=== PATIENT | female | born 1995 | race Two or more races ===

== ENCOUNTER 2016-05-14 09:11 | Emergency (ER) | payer MEDICAID ==
--- NOTE | 2016-05-14 09:15 | EDM.PDOC ---
ED HPI GENERAL MEDICAL PROBLEM - General Chief Complaint: General Stated Complaint: difficulty breathing, back pain Time Seen by Provider: 05/14/16 09:11 Source of Information: Reports: Patient History Limitations: Reports: No limitations - History of Present Illness INITIAL COMMENTS - FREE TEXT/NARRATIVE: pt in with c/o "I cant breathe", has chest and nasal congestion, denies fever or chills, no neck/back pain or stiffness, no abd pain, no calf pain/tenderness or redness, no abd pain, no nvdc, no problems with site, no uti sx, pt very belligerent and cursing in room. Onset Date: 05/13/16 Severity: mild Improves with: Reports: None Worsens with: Reports: None Associated Symptoms: Reports: cough, cough w sputum. Denies: fever/chills, headaches, loss of appetite, malaise, nausea/vomiting, rash, seizure, shortness of breath, syncope, weakness Treatments COLON THERAPIST: Reports: Other (see below) (none) Back Pain Score (Numeric/FACES): 10 - Related Data Allergies Allergy/AdvReac Type Severity Reaction Status Date / Time No Known Allergies Allergy Verified 05/14/16 09:12 Home Meds: Home Meds Acetaminophen [Tylenol] 650 mg PO Q6H PRN #0 tablet 04/09/16 [Rx] Docusate Sodium [Colace] 100 mg PO Q12H PRN #0 cap 04/09/16 [Rx] Ibuprofen [IJD: Ibuprofen] 800 mg PO Q8H PRN #0 tablet 04/09/16 [Rx] Past Medical History - Past Health History Medical/Surgical History: Denies Medical/Surgical History HEENT History: Reports: None Cardiovascular History: Reports: None Respiratory History: Reports: None Gastrointestinal History: Reports: None Genitourinary History: Reports: UTI, recurrent [employer] History: Reports: Neurological History: Reports: Migraines Psychiatric History: Reports: Anxiety, Depression Hematologic History: Reports: Anemia, Iron deficiency - Infectious Disease History Infectious Disease History: Reports: Chicken pox Social & Family History - Family History Family Medical History: Noncontributory - Tobacco Use Smoking Status *Q: Current Every Day Smoker Years of Tobacco use: 5 Packs/Tins Daily: 0.5 Used Tobacco, but Quit: Yes Month Tobacco Last Used: 09/2015 Second Hand Smoke Exposure: No - Caffeine Use Caffeine Use: Reports: Soda - Alcohol Use Days Per Week of Alcohol Use: 0 - Recreational Drug Use Recreational Drug Use: Yes Drug Use in Last 12 Months: Yes Recreational Drug Type: Reports: Marijuana/Hashish Recreational Drug Use Frequency: Daily Recreational Drug Last Use: 03/2016 - Living Situation & Occupation Living situation: Reports: single, with significant other Occupation: unemployed ED ROS GENERAL - Review of Systems Review Of Systems: See Below Constitutional: Denies: fever, chills, weakness HEENT: Reports: Sinus problem. Denies: Ear pain, Throat pain, Throat swelling, Vision change Respiratory: Reports: cough, sputum Cardiovascular: Reports: No symptoms. Denies: Chest pain Endocrine: Reports: no symptoms GI/Abdominal: Reports: No symptoms, Abdominal pain. Denies: Nausea, Vomiting : Reports: no symptoms Musculoskeletal: Reports: no symptoms. Denies: neck pain, back pain, muscle pain Skin: Reports: no symptoms. Denies: bruising, rash Neurological: Reports: no symptoms. Denies: confusion, dizziness, headache, numbness, syncope, tingling, trouble speaking, difficulty walking, weakness, gait disturbance Psychiatric: Reports: Agitation Hematologic/Lymphatic: Reports: no symptoms Immunologic: Reports: no symptoms ED EXAM, GENERAL - Physical Exam Exam: See Below Exam Limited By: No limitations General Appearance: alert, WD/WN, no apparent distress Ears: normal external exam, normal canal, hearing grossly normal, normal TMs Ear Exam: bilateral ear: auricle normal, canal normal, TM normal Nose: nasal tenderness, nasal drainage. No: normal inspection Throat/Mouth: Normal inspection, Normal lips, Normal gums, Normal oropharynx, Normal voice, No airway compromise Head: atraumatic, normocephalic Neck: normal inspection, supple, non-tender, full range of motion Respiratory/Chest: no respiratory distress, lungs clear, normal breath sounds, no accessory muscle use, chest non-tender Cardiovascular: normal peripheral pulses, regular rate, rhythm, no edema, no murmur Peripheral Pulses: 2+: radial (L), radial (R), posterior tibial (L), posterior tibial (R) GI/Abdominal: soft, non tender Back Exam: normal inspection, full range of motion. No: CVA tenderness (L), CVA tenderness (R) Extremities: normal inspection, normal range of motion, non-tender, no pedal edema, normal capillary refill Neurological: alert, oriented, normal cognition, normal gait, no motor/sensory deficits Psychiatric: other (verbally abusive to staff) Skin Exam: Warm, Dry, Intact, Normal color, No rash Lymphatic: no adenopathy Course - Vital Signs Last Recorded V/S: Last Vital Signs Temp 36.7 C 05/14/16 09:15 Pulse 76 05/14/16 09:15 Resp 18 05/14/16 09:15 BP 111/77 05/14/16 09:15 Pulse Ox 98 05/14/16 09:15 - Orders/Labs/Meds Orders: Active Orders 24 hr Category Date Time Status Chest 2V [CR] Stat Exams 05/14/16 09:15 Ordered BASIC METABOLIC PANEL,BMP [CHEM] Stat Lab 05/14/16 09:15 Ordered CBC WITH AUTO DIFF [HEME] Stat Lab 05/14/16 09:15 Ordered - Re-Assessments/Exams Free Text/Narrative Re-Assessment/Exam: 05/14/16 09:26 pt has been belligerent with staff from the time she came in her room, she became belligerent and cursing at staff and I asked her to stop her verbal abuse of staff, she continued and advised "I am leaving" she further advised that she was "pissed" because she was drug tested here when she was and tested positive for HCG and CPS came to her house. pt refused to sign ama and left cursing the ED. Departure - Departure Time of Disposition: 09:36 Disposition: Against Medical Advice 07 Condition: good Clinical Impression: Upper respiratory infection Forms: Refusal of Care AMA - Problem List & Annotations (1) Upper respiratory infection SNOMED Code(s): 20618977 Code(s): J06.9 - ACUTE UPPER RESPIRATORY INFECTION, UNSPECIFIED Status: Acute Priority: Medium Onset Date: ~05/14/16 Qualifiers: URI type: unspecified viral URI Qualified Code(s): J06.9 - Acute upper respiratory infection, unspecified; B97.89 - Other viral agents as the cause of diseases classified elsewhere - Problem List Review Problem List Initiated/Reviewed/Updated: Yes - My Orders Last 24 Hours: My Active Orders 05/14/16 09:15 Chest 2V [CR] Stat BASIC METABOLIC PANEL,BMP [CHEM] Stat CBC WITH AUTO DIFF [HEME] Stat - Assessment/Plan Last 24 Hours: My Active Orders 05/14/16 09:15 Chest 2V [CR] Stat BASIC METABOLIC PANEL,BMP [CHEM] Stat CBC WITH AUTO DIFF [HEME] Stat
[2016-05-14 09:20] VITALS: BP 111/77
== END 2016-05-14 09:35 | disposition left against medical advice (07) ==
LOC: CC.ED 09:11
DX: J06.9 Acute upper respiratory infection, unspecified (principal); F41.9 Anxiety disorder, unspecified; F32.9 Major depressive disorder, single episode, unspecified; F17.210 Nicotine dependence, cigarettes, uncomplicated; Z87.440 Personal history of urinary (tract) infections; Z86.2 Personal history of diseases of the blood and blood-forming organs and certain disorders involving the immune mechanism
CPT/HCPCS: 99284